=== PATIENT | female | born 1990 | race Hispanic/Latino ===

== ENCOUNTER 2021-11-27 12:43 | Emergency (ER) | payer OTHER ==
[~2021-11-27] VITALS: Ht 160 cm; Wt 84.4 kg
[2021-11-27] MEDS ORDERED: CEFTRIAXONE 1 GM VIAL IM ONE (13:15)
[2021-11-27] MEDS ORDERED: AUGMENTIN 500-1 EACH PO (13:27)
[2021-11-27] MEDS ORDERED: NAPROSYN500 MG PO (13:29)
[2021-11-27] MEDS ORDERED: CEFTRIAXONE 1 GM VIAL ONE (13:30)
[2021-11-27] MEDS ORDERED: HYDROCODONE/APAP 5MG-325MG TAB PO ONE (14:00)
== END 2021-11-27 13:50 | disposition home or self-care (01) ==
LOC: FSED 13:02
DX: L03.031 Cellulitis of right toe (principal)
CPT/HCPCS: 99282; J0696

== ENCOUNTER 2021-12-03 11:27 | Emergency (ER) | payer OTHER ==
[~2021-12-03] VITALS: Ht 160 cm; Wt 85.8 kg
[~2021-12-03 11:27] MED LIST: AUGMENTIN 500-1 EACH PO; NAPROSYN500 MG PO
[2021-12-03] MEDS ORDERED: TAMIFLU75 MG PO (12:25)
== END 2021-12-03 12:42 | disposition home or self-care (01) ==
LOC: FSED 11:59
DX: R05.9 Cough, unspecified (principal); J10.1 Influenza due to other identified influenza virus with other respiratory manifestations; B34.9 Viral infection, unspecified
CPT/HCPCS: 81003; 81025; 83518; 87400; 99283

== ENCOUNTER 2021-12-11 11:01 | Emergency (ER) | payer OTHER ==
[~2021-12-11] VITALS: Ht 160 cm; Wt 85.7 kg
[~2021-12-11 11:01] MED LIST changes: +TAMIFLU75 MG PO
[2021-12-11] MEDS ORDERED: PERIDEX473 M1 PO (11:14)
[2021-12-11] MEDS ORDERED: AMOXICILLIN500 MG PO (11:14)
== END 2021-12-11 11:28 | disposition home or self-care (01) ==
LOC: FSED 11:13
DX: K14.0 Glossitis (principal); K04.01 Reversible pulpitis
CPT/HCPCS: 99282

== ENCOUNTER 2022-03-17 10:09 | Emergency (ER) | payer OTHER ==
[~2022-03-17] VITALS: Ht 160 cm; Wt 86.2 kg
[~2022-03-17 10:09] MED LIST changes: +AMOXICILLIN500 MG PO; +PERIDEX473 M1 PO
[2022-03-17] MEDS ORDERED: FAMOTIDINE 20 MG/2 ML VIAL IV STA (10:27)
[2022-03-17] MEDS ORDERED: METHYLPREDNISOLONE SOD SUCC 125 MG/2ML VIAL IV ONE (10:30)
[2022-03-17] MEDS ORDERED: METHYLPREDNISOLONE SOD SUCC 125 MG/2ML VIAL ONE (10:49)
[2022-03-17] MEDS ORDERED: FAMOTIDINE 20 MG/2 ML VIAL IV ONE (10:49)
[2022-03-17] MEDS ORDERED: PREDNISONE20 MG PO (11:32)
[2022-03-17] MEDS ORDERED: BENADRYL25 M1 PO (11:32)
[2022-03-17] MEDS ORDERED: PEPCID20 MG PO (11:32)
== END 2022-03-17 11:41 | disposition home or self-care (01) ==
LOC: FSED 10:22
DX: T78.3XXA Angioneurotic edema, initial encounter (principal); L71.9 Rosacea, unspecified
CPT/HCPCS: 99282; J2930

== ENCOUNTER 2024-01-08 14:04 | Emergency (ER) | payer SELFPAY ==
[~2024-01-08] VITALS: Ht 160 cm; Wt 93.9 kg
[~2024-01-08 14:04] MED LIST changes: +BENADRYL25 M1 PO; +CYCLOBENZAPRINE10 MG PO; +NAPROXEN500 MG PO; +ONDANSETRON ODT4 MG PO; +PEPCID20 MG PO; +PREDNISONE20 MG PO
[2024-01-08] MEDS: SODIUM CHLORIDE 0.9% 1000ML 1,000 ML IV SCH (15:15)
[2024-01-08] MEDS: KETOROLAC TROMETHAMINE 30 MG/ML VIAL IV STA (15:15)
[2024-01-08] MEDS ORDERED: LISINOPRIL5 MG PO (16:45)
[2024-01-08] MEDS ORDERED: METFORMIN HCL500 MG PO (16:45)
[2024-01-08 16:47] VITALS: O2SAT 99
== END 2024-01-08 17:13 | disposition home or self-care (01) ==
LOC: FSED 14:11
DX: R51.9 Headache, unspecified (principal); E86.0 Dehydration; R03.0 Elevated blood-pressure reading, without diagnosis of hypertension; R73.9 Hyperglycemia, unspecified; R73.03 Prediabetes
CPT/HCPCS: 36415; 80053; 81003; 81025; 82948; 85025; 99284

== ENCOUNTER 2024-05-19 13:54 | Emergency (ER) | payer MEDICARE, OTHER ==
[~2024-05-19] VITALS: Ht 160 cm; Wt 90.3 kg
[~2024-05-19 13:54] MED LIST changes: +LISINOPRIL5 MG PO; +METFORMIN HCL500 MG PO
[2024-05-19 13:59] VITALS: TEMP 98.2
[2024-05-19] MEDS ORDERED: TIRZEPATIDE (14:43)
[2024-05-19] MEDS ORDERED: MOUNJARO7.5 MG/0.5 (14:43)
[2024-05-19] MEDS: SODIUM CHLORIDE 0.9% 1000ML 1,000 ML IV ONE (14:51)
[2024-05-19] MEDS ORDERED: POTASSIUM CHLORIDE 20 MEQ TAB CR PO STA (15:31)
[2024-05-19] MEDS: POTASSIUM CHLORIDE 20 MEQ TAB CR PO ONE (15:54)
[2024-05-19 15:56] VITALS: PULSE 97; RESP 19; O2SAT 98
== END 2024-05-19 15:59 | disposition home or self-care (01) ==
LOC: FSED 13:57
DX: R00.2 Palpitations (principal); E11.65 Type 2 diabetes mellitus with hyperglycemia; E87.6 Hypokalemia
CPT/HCPCS: 80048; 80307; 81003; 81025; 82553; 84484; 85025; 93005; 99284; J7030

== ENCOUNTER 2025-05-23 11:36 | Emergency (ER) | payer OTHER ==
[~2025-05-23] VITALS: Ht 160 cm; Wt 87.6 kg
[~2025-05-23 11:36] MED LIST changes: +MOUNJARO7.5 MG/0.5; +TIRZEPATIDE
[2025-05-23 11:50] VITALS: PULSE 123; RESP 20; TEMP 98.3
[2025-05-23] MEDS: SODIUM CHLORIDE 0.9% 1000ML 1,000 ML IV STA (12:48)
[2025-05-23] MEDS ORDERED: PANTOPRAZOLE SO40 MG PO (13:49)
[2025-05-23] MEDS ORDERED: MAALOX MAXIMUM355 ML PO (13:49)
[2025-05-23] MEDS ORDERED: ONDANSETRON ODT4 MG PO (13:49)
[2025-05-23 13:53] VITALS: BP 119/77; PULSE 114; RESP 18; TEMP 98.6; O2SAT 99
== END 2025-05-23 14:05 | disposition home or self-care (01) ==
LOC: FSED 11:49
DX: K92.2 Gastrointestinal hemorrhage, unspecified (principal); K52.9 Noninfective gastroenteritis and colitis, unspecified; R10.9 Unspecified abdominal pain
CPT/HCPCS: 74176; 80053; 81003; 81025; 85025; 99283; J7030